=== PATIENT | male | born 1995 | race Caucasian/White ===

== ENCOUNTER 2017-11-23 09:16 | Emergency (ER) | payer OTHER ==
[2017-11-23] MEDS ORDERED: Naproxen TAB* 250 MG PO ONE (10:11)
[2017-11-23 10:46] VITALS: BP 128/64
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
== END 2017-11-23 10:47 | disposition home or self-care (01) ==
LOC: ED 09:16
DX: Z04.1 Encounter for examination and observation following transport accident (principal); V89.2XXA Person injured in unspecified motor-vehicle accident, traffic, initial encounter; Y92.9 Unspecified place or not applicable
CPT/HCPCS: 99281; A9270-GY